=== PATIENT | female | born 1970 | race Caucasian/White ===

== ENCOUNTER 2017-09-14 12:31 | Emergency (ER) | payer BC ==
[~2017-09-14] VITALS: Ht 160 cm; Wt 90.7 kg
[2017-09-14] MEDS ORDERED: PROTONIX40 M1 PO (12:41)
[2017-09-14] MEDS ORDERED: HORMONE PILL (12:41)
[2017-09-14] MEDS ORDERED: AUGMENTIN 875-1 EACH PO (13:45)
[2017-09-14 13:51] VITALS: BP 137/97
== END 2017-09-14 13:53 | disposition home or self-care (01) ==
LOC: M.ERS 12:31
DX: J01.90 Acute sinusitis, unspecified (principal); H66.91 Otitis media, unspecified, right ear; F17.200 Nicotine dependence, unspecified, uncomplicated; Z90.710 Acquired absence of both cervix and uterus; Z98.890 Other specified postprocedural states

== ENCOUNTER 2019-10-24 15:48 | Emergency (ER) | payer OTHER ==
[~2019-10-24] VITALS: Ht 160 cm; Wt 86.2 kg
[~2019-10-24 15:48] MED LIST: AUGMENTIN 875-1 EACH PO; HORMONE PILL; PROTONIX40 M1 PO
[2019-10-24 17:25] LABS: INFLUENZA A ANTIGEN Negative (Negative); INFLUENZA B ANTIGEN Negative (Negative)
[2019-10-24 17:43] LABS: ABSOLUTE EOSINOPHILS 0.2 thou/uL (0.0-0.7); ABSOLUTE LYMPHOCYTES 2.3 thou/uL (0.8-5.3); ABSOLUTE MONOCYTES 0.5 thou/uL (0.0-1.2); ABSOLUTE NEUTROPHILS 5.1 thou/uL (1.6-8.1); BASOPHILS 0.5 %; EOSINOPHILS 2.4 %; HEMATOCRIT 38.1 % (37.0-47.0); HEMOGLOBIN 13.1 gm/dL (12.0-15.0); LYMPHOCYTES 28.2 %; MCH 30.4 pg (26.0-34.0); MCHC 34.5 g/dL (28.0-37.0); MONOCYTES 6.3 %; MPV 8.3 fl. (7.2-11.1); NUCLEATED RBCS 0 /100WBC; PLATELET COUNT* 267 thou/uL (150-400); POLYS 62.6 %; RBC 4.33 mil/uL (4.20-5.00); RDW-CV 14.1 % (10.5-14.5); WBC 8.1 thou/uL (4.0-11.0)
[2019-10-24 17:57] LABS: CALCIUM 8.1 mg/dL (8.5-10.1); CREATININE 0.9 mg/dL (0.6-1.3); POTASSIUM 3.8 mmol/L (3.5-5.1)
[2019-10-24 18:02] LABS: ALBUMIN 3.4 g/dL (3.4-5.0); TOTAL BILIRUBIN 0.2 mg/dL (<0.1-1.0); TOTAL PROTEIN 6.6 g/dL (6.4-8.2)
[2019-10-24 18:52] LABS: ESR (SEDRATE) 13 mm/hr (0-20)
[2019-10-24] MEDS ORDERED: AUGMENTIN 875-1 EACH PO (19:24)
[2019-10-24 19:41] VITALS: BP 147/77
== END 2019-10-24 19:43 | disposition home or self-care (01) ==
LOC: M.ERS 15:48
PROVIDERS: Nurse Practitioner Family
DX: G43.909 Migraine, unspecified, not intractable, without status migrainosus (principal); J32.9 Chronic sinusitis, unspecified; Z90.89 Acquired absence of other organs; Z90.710 Acquired absence of both cervix and uterus

== ENCOUNTER 2019-11-15 19:57 | Emergency (ER) | payer OTHER ==
[~2019-11-15] VITALS: Ht 160 cm; Wt 86.2 kg
[2019-11-15] MEDS ORDERED: MIGRANE MED (20:10)
[2019-11-15] MEDS ORDERED: ACID REFLUX MED (20:10)
[2019-11-15] MEDS ORDERED: LIPITOR10 MG PO (20:11)
[2019-11-15] MEDS ORDERED: HORMONE MED (20:11)
[2019-11-15] MEDS ORDERED: EXCEDRIN MIGRA1 EAC1 PO (20:12)
[2019-11-15] MEDS ORDERED: FLEXERIL PO (21:54)
[2019-11-15] MEDS ORDERED: NABUMETONE 750750 M1 PO (21:54)
[2019-11-15] MEDS ORDERED: MEDROLDOSEPACK PO (21:54)
[2019-11-15] MEDS ORDERED: NORCO 5-325 TA1 EAC1 PO (22:04)
[2019-11-15 22:25] VITALS: BP 162/89
== END 2019-11-15 22:25 | disposition home or self-care (01) ==
LOC: M.ERS 19:57
DX: M54.32 Sciatica, left side (principal); G43.909 Migraine, unspecified, not intractable, without status migrainosus; Z90.710 Acquired absence of both cervix and uterus; Z90.49 Acquired absence of other specified parts of digestive tract; Z98.890 Other specified postprocedural states

== ENCOUNTER 2020-01-01 05:42 | Emergency (ER) | payer OTHER ==
[~2020-01-01] VITALS: Ht 160 cm; Wt 86.2 kg
[~2020-01-01 05:42] MED LIST changes: +ACID REFLUX MED; +EXCEDRIN MIGRA1 EAC1 PO; +FLEXERIL PO; +HORMONE MED; +LIPITOR10 MG PO; +MEDROLDOSEPACK PO; +MIGRANE MED; +NABUMETONE 750750 M1 PO; +NORCO 5-325 TA1 EAC1 PO
[2020-01-01 06:09] LABS: URINE BILIRUBIN NEGATIVE (Negative); URINE BLOOD 3+ (Negative); URINE CLARITY CLOUDY; URINE COLOR YELLOW; URINE GLUCOSE-RANDOM NEGATIVE (Negative); URINE KETONES NEGATIVE (Negative); URINE NITRITE-REFLEX NEGATIVE (Negative); URINE PROTEIN 2+ (Negative); URINE SPECIFIC GRAVITY 1.025 (1.005-1.030); URINE UROBILINOGEN 0.2 E.U./dl (0.2-1.0)
[2020-01-01] MEDS ORDERED: PYRIDIUM200 MG PO (06:13)
[2020-01-01] MEDS ORDERED: BACTRIM DS TAB1 EACH PO (06:13)
[2020-01-01] MEDS ORDERED: HYDROCODON-ACE1 EAC8 PO (06:13)
[2020-01-01 06:16] LABS: URINE LEUKOCYTES-REFLEX 2+ (Negative)
[2020-01-01 06:35] VITALS: BP 131/96
[2020-01-01 06:49] LABS: CASTS None Seen /LPF (None Seen); SQUAMOUS 0-3 Few /LPF (0-3)
[2020-01-01 06:50] LABS: URINE WBC-REFLEX >25 Many /HPF (0-5)
[2020-01-01 06:51] LABS: BACTERIA-REFLEX >30 Many /HPF (None Seen); CRYSTALS None Seen /LPF (None Seen)
== END 2020-01-01 06:35 | disposition home or self-care (01) ==
LOC: M.ERS 05:42
PROVIDERS: Emergency Medicine
DX: N30.90 Cystitis, unspecified without hematuria (principal); G43.909 Migraine, unspecified, not intractable, without status migrainosus; Z90.710 Acquired absence of both cervix and uterus; Z90.89 Acquired absence of other organs; Z98.890 Other specified postprocedural states

== ENCOUNTER 2020-05-06 07:43 | Emergency (ER) | payer OTHER ==
[~2020-05-06] VITALS: Ht 160 cm; Wt 92.1 kg
[~2020-05-06 07:43] MED LIST changes: +BACTRIM DS TAB1 EACH PO; +HYDROCODON-ACE1 EAC8 PO; +PYRIDIUM200 MG PO
[2020-05-06 07:55] VITALS: BP 132/79
[2020-05-06 08:03] LABS: URINE BILIRUBIN NEGATIVE (Negative); URINE BLOOD 3+ (Negative); URINE CLARITY SL CLOUDY; URINE COLOR YELLOW; URINE GLUCOSE-RANDOM NEGATIVE (Negative); URINE KETONES NEGATIVE (Negative); URINE LEUKOCYTES-REFLEX 2+ (Negative); URINE NITRITE-REFLEX NEGATIVE (Negative); URINE PROTEIN 1+ (Negative); URINE UROBILINOGEN 0.2 E.U./dl (0.2-1.0)
[2020-05-06 08:09] LABS: SQUAMOUS 0-3 Few /LPF (0-3); URINE RBC >20 Many /HPF (0-2); URINE WBC-REFLEX >25 Many /HPF (0-5)
[2020-05-06 08:11] LABS: CASTS None Seen /LPF (None Seen); CRYSTALS None Seen /LPF (None Seen); MUCUS None Seen strn/LPF (None Seen)
[2020-05-06] MEDS ORDERED: MACROBID 100 M100 M1 PO (08:13)
[2020-05-06] MEDS ORDERED: DIFLUCAN150 MG PO (08:19)
[2020-05-06] MEDS ORDERED: PYRIDIUM200 MG PO (08:19)
== END 2020-05-06 08:31 | disposition home or self-care (01) ==
LOC: M.ERS 07:43
PROVIDERS: Family Medicine
DX: N39.0 Urinary tract infection, site not specified (principal); G43.909 Migraine, unspecified, not intractable, without status migrainosus; F17.210 Nicotine dependence, cigarettes, uncomplicated; Z90.710 Acquired absence of both cervix and uterus; Z90.49 Acquired absence of other specified parts of digestive tract; Z98.890 Other specified postprocedural states

== ENCOUNTER 2020-12-10 22:18 | Emergency (ER) | payer OTHER ==
[~2020-12-10] VITALS: Ht 160 cm; Wt 90.7 kg
[~2020-12-10 22:18] MED LIST changes: +DIFLUCAN150 MG PO; +MACROBID 100 M100 M1 PO
[2020-12-10 23:13] LABS: URINE BILIRUBIN NEGATIVE (Negative); URINE BLOOD NEGATIVE (Negative); URINE CLARITY CLEAR; URINE COLOR YELLOW; URINE GLUCOSE-RANDOM NEGATIVE (Negative); URINE KETONES NEGATIVE (Negative); URINE LEUKOCYTES NEGATIVE (Negative); URINE NITRITE NEGATIVE (Negative); URINE PROTEIN NEGATIVE (Negative); URINE SPECIFIC GRAVITY 1.025 (1.005-1.030); URINE UROBILINOGEN 0.2 E.U./dl (0.2-1.0)
[2020-12-10 23:22] LABS: AMP/METHAMP Negative (Negative); BARBITURATES Negative (Negative); BENZODIAZEPINES Negative (Negative); COCAINE Negative (Negative); METHADONE Negative (Negative); OPIATES Negative (Negative); PCP Negative (Negative); THC Negative (Negative)
[2020-12-10 23:25] LABS: HEMATOCRIT 39.7 % (37.0-47.0); HEMOGLOBIN 13.5 gm/dL (12.0-15.0); MCH 29.7 pg (26.0-34.0); MCV 87.4 fL (80.0-100.0); MPV 8.3 fl. (7.2-11.1); RBC 4.54 mil/uL (4.20-5.00); RDW-CV 14.2 % (10.5-14.5); WBC 10.7 thou/uL (4.0-11.0)
[2020-12-10 23:33] LABS: CALCIUM 8.6 mg/dL (8.5-10.1); CREATININE 1.1 mg/dL (0.6-1.3); POTASSIUM 3.9 mmol/L (3.5-5.1)
[2020-12-10 23:38] LABS: ALBUMIN 3.6 g/dL (3.4-5.0); TOTAL BILIRUBIN 0.2 mg/dL (<0.1-1.0); TOTAL PROTEIN 7.1 g/dL (6.4-8.2)
[2020-12-10 23:45] LABS: SALICYLATE 3.3 mg/dL (2.8-20.0)
[2020-12-10 23:46] LABS: ACETAMINOPHEN < 2 ug/mL (10-30); ALCOHOL < 10 mg/dL (<10)
[2020-12-11] MEDS ORDERED: MOBIC15 MG PO (04:02)
[2020-12-11] MEDS ORDERED: HYDROCODON-ACE1 EAC7 PO (04:02)
[2020-12-11 04:18] VITALS: BP 130/63
== END 2020-12-11 04:19 | disposition still patient (30) ==
LOC: M.ERS 22:18
PROVIDERS: Personal Emergency Response Attendant
DX: M25.562 Pain in left knee (principal); R45.851 Suicidal ideations; G43.909 Migraine, unspecified, not intractable, without status migrainosus; Z90.710 Acquired absence of both cervix and uterus; Z90.89 Acquired absence of other organs; Z98.890 Other specified postprocedural states; Z79.899 Other long term (current) drug therapy